=== PATIENT | female | born 1980 | race Caucasian/White ===

== ENCOUNTER 2021-10-19 11:52 | Inpatient (IN) | payer OTHER, SELFPAY ==
[2021-10-19] VITALS (10 sets, daily range): BP systolic 105–113; BP diastolic 54–81; PULSE 74–105; TEMP 36.6–37.3; BMI 42.3
--- NOTE | ~2021-10-19 | US_ITS ---
EXAMINATION: US OB limited w BPP DATE: 10/19/2021 13:47 INDICATION: Spotting. Third trimester. TECHNIQUE: Real-time pelvic ultrasound was performed. COMPARISON: None. FINDINGS: There is a single living fetus in vertex presentation. The placenta is fundal. heart rate is 1 50 beats per minute (bpm). The amniotic fluid index is 9.3 cm, which is normal. Biophysical profile performed by the technologist: breathing (30 sec sustained breathing in 30 minutes): 2 out of 2 movement (3 gross body movements in 30 minutes): 2 out of 2 tone (one episode of ljjkbiz-sghnvsxeb-adodrqi limb movement): 2 out of 2 Amniotic fluid pocket (2 cm): 2 out of 2 Total score: 8 out of 8 IMPRESSION: 1. Single living fetus in vertex presentation. 2. Biophysical profile 8 out of 8. Reviewed, dictated and finalized at location A. [employer]
--- NOTE | 2021-10-19 15:28 | LDADM ---
This patient, Aaliyah Garsia, was admitted to Labor/Delivery/Recovery 108 on 10/19/21 at 14:10. Plans for labor, pain management and were discussed with patient. Patient/family oriented to hospital policies and general routines including ID bracelet, bed and alarms, visiting hours, pain management, procedures, bathroom and other care routines, personal items, smoking policy, room service/diet and guest tray routines, infant security routines, and visiting hours. Patient/Family are encouraged to report perceived risks to care and to ask questions if they do not understand what they are told or what they should do. See OBIX for further documentation.
[2021-10-19] MEDS: DINOPROSTONE 10 MG VAG INSERT VAGINAL (16:44)
[2021-10-19 16:54] LABS: Basophils Percent Auto 0.2 % (0.2-1.2); Eosinophils Absolute Auto 0.1 K/mm3 (0-0.3); Eosinophils Percent Auto 0.5 % (0-4.4); Hematocrit 33.1 % (37.0-47.0); Hemoglobin 10.9 g/dL (12.0-15.0); Immature Granulocyte Absolute 0.03 K/mm3 (0.00-0.031); Immature Granulocyte Percent A 0.3 % (0-0.5); Lymphocytes Absolute Auto 1.75 K/mm3 (0.9-3.2); Lymphocytes Percent Auto 17.7 % (18.3-44.2); Mean Corpuscular HGB Conc 32.9 g/dl (32-36); Mean Corpuscular Hemoglobin 27.9 pg (26-34); Mean Corpuscular Volume 84.9 fl (80-100); Mean Platelet Volume 8.4 fl (7.4-10.4); Monocytes Absolute Auto 0.4 K/mm3 (0.1-0.6); Monocytes Percent Auto 3.9 % (2.6-8.5); Neutrophils Absolute Auto 7.6 K/mm3 (1.3-6.7); Neutrophils Percent Auto 77.4 % (45.5-73.1); Platelet Count Result 380 k/mm3 (150-375); Red Cell Distribution Width 13.2 % (11.5-14.5); White Blood Count 9.9 K/mm3 (4.5-10.0)
[2021-10-20] VITALS (131 sets, daily range): BP systolic 72–171; BP diastolic 29–140; PULSE 58–132; TEMP 36.4–37; O2SAT 96–100
[2021-10-20] MEDS: LACTATED RINGERS 1,000 ML 125 ML IV CONT ×2 (05:39→13:16)
[2021-10-20] MEDS: OXYTOCIN 30 UNITS/NS 500 ML 30 UNITS/500 ML BAG IV CONT (05:39)
--- NOTE | 2021-10-20 06:47 | WPDOBADMIT ---
Obstetrics - Admit Note Admission Note: record reviewed. No pertinent additions to the history and/or any subsequent changes in the physical findings that are not consistent with the expected course of the were found. MIL at 39.4 weeks gestation, Induction for third trimester spotting SVE /-3, AROM minimal amount of fluid, odorless, blood colored mucus, will continue to monitor Additions to the history and/or subsequent changes in the physical findings follow. None.
[2021-10-20] MEDS: fentaNYL CITRATE INJ (*CRX) 100 MCG/2 ML VIAL IV PUSH (12:12)
--- NOTE | 2021-10-20 13:25 | WPDANESEPP ---
Anes - Eval Pre Procedure Procedure: Labor Epidural Operation Date: 10/17/21 13:30 Proposed Procedures p Primary Section - Sebastien Delaney MD Date/Time: 10/20/21 13:25 Surgeon: Elaina Preop Diagnosis: Labor Pain Pre Op Diagnosis: Contractions Patient Data Age: 41 Gender: F Height: 1.6 m Weight: 108.5 kg Last Vital Signs Temp 37.0 C 10/20/21 06:40 Pulse 80 10/20/21 13:20 BP 121/80 10/20/21 13:20 Pulse Ox 99 10/20/21 13:16 Allergies Allergy/AdvReac Type Severity Reaction Status Date / Time No Known Allergies Allergy Mild Verified 12/18/12 13:36 Home Medications Medication Instructions Recorded Confirmed Type prenat.vits,caesar,hnh-wiig-vstnw 1 tablet PO DAILY 10/01/21 10/19/21 History [ #2] calcium carbonate [Tums] 300 mg PO QID PRN 10/19/21 10/19/21 History Laboratory Tests 10/19/21 10/19/21 10/19/21 16:35 16:35 16:35 WBC 9.9 K/mm3 K/mm3 (4.5-10.0) RBC 3.90 M/mm3 L M/mm3 (4.2-5.4) Hgb 10.9 g/dL L g/dL (12.0-15.0) Hct 33.1 % L % (37.0-47.0) MCV 84.9 fl fl (80-100) MCH 27.9 pg pg (26-34) MCHC 32.9 g/dl g/dl (32-36) RDW 13.2 % % (11.5-14.5) Plt Count 380 k/mm3 H k/mm3 (150-375) MPV 8.4 fl fl (7.4-10.4) Immature Gran % (Auto) 0.3 % % (0-0.5) Neut % (Auto) 77.4 % H % (45.5-73.1) Lymph % (Auto) 17.7 % L % (18.3-44.2) [place] % (Auto) 3.9 % % (2.6-8.5) Eos % (Auto) 0.5 % % (0-4.4) Baso % (Auto) 0.2 % % (0.2-1.2) Lymph # (Auto) 1.75 K/mm3 K/mm3 (0.9-3.2) [place] # (Auto) 0.4 K/mm3 K/mm3 (0.1-0.6) Eos # (Auto) 0.1 K/mm3 K/mm3 (0-0.3) Baso # (Auto) 0.0 K/mm3 K/mm3 (0.0-0.1) Abs Immat Gran (auto) 0.03 K/mm3 K/mm3 (0.00-0.031) Absolute Neuts (auto) 7.6 K/mm3 H K/mm3 (1.3-6.7) Absolute Nucleated RBC 0.0 K/mm3 K/mm3 (0.0-0.012) Nucleated RBC % 0.0 % % (0.0-0.2) RPR Pending Blood Type A Positive Antibody Screen Negative : gestational age (ROSENDO 10/23/21) Patient hx anesthesia problems: none Family hx anesthesia problems: none Results Review: All pre-operative results and documents have been reviewed as part of the pre-operative evaluation. [facility] Family History Family History Father Heart murmur of High cholesterol H/O right and left heart catheterization Mother Arthritis H/O partial thyroidectomy Hypertension Grandparent Breast cancer in female Acute myocardial infarction Congestive heart failure A-fib Heart disease Melanoma Lung cancer Social History Social History Smoking status: Never smoker Second hand tobacco smoke exposure: No Substance use: never Spiritual care concerns: No Exam Day of Procedure 10/20/21 13:25 Patient weight: obese Heart: regular rate and rhythm Lungs: normal air movement Airway: Mallampati scale class II Neurological: alert and oriented
--- NOTE | 2021-10-20 17:52 | P.PCNOB_ITS ---
OB - Delivery Note Procedure Delivery date: 10/20/21 Procedure: Procedures vaginal delivery Operation Date: 10/17/21 13:30 <No data on this case meets the specified criteria> Intrapartal events: None and Deceleration (variables) Induction method: AROM, per pitocin protocol and per cervidil protocol Delivery monitor: none, external FHT, external uterine, internal FHT and internal uterine Episiotomy description: None Laceration Description: None Specimen: Yes Quantitative Blood Loss (ml): 95 Anesthesia type: Epidural Disposition: floor [place] Baby Date of : 10/20/21 Time of : 17:39 Weeks of gestation at delivery: 39 gender: Female Weight (pounds): 7 Weight (ounces): 11 presentation: vertex position: Left Occiput Anterior Placenta delivery description: Spontaneous cord vessel description: 3 Vessels, Nuchal Cord (x2), Loose, Reduced, Clamped/Cut, Around Body x1 and Delayed Cord Clamping score one minute: 9 score five minutes: 9 Narrative: mother and baby skin to skin in stable condition
[2021-10-20] MEDS: OXYTOCIN 30 UNITS/NS 500 ML 30 UNITS/500 ML BAG 125 UNITS IV CONT (18:16)
[2021-10-21 05:35] LABS: Hematocrit 31.4 % (37.0-47.0)
[2021-10-21] MEDS: ACETAMINOPHEN 325 MG TABLET 650 MG PO (06:33)
[2021-10-21 07:35] VITALS: BP 99/65; PULSE 59; RESP 14; TEMP 36.5; O2SAT 99
--- NOTE | 2021-10-21 12:38 | WPDANLDPN2 ---
Anes-Prog Note L&D Date/Time: 10/21/21 12:38 Comfortable throughout: labor and delivery Neuraxial method: epidural Epidural/Spinal procedure site: clean & non-tender Neuro status: Neuro function grossly intact. Cardiovascular status: normal Respiratory status: normal Airway patency: baseline Mental status: baseline Post-Op hydration status: normal Vital Signs: Last Vital Signs Temp 36.5 C 10/21/21 07:35 Pulse 59 L 10/21/21 07:35 Resp 14 10/21/21 07:35 BP 99/65 L 10/21/21 07:35 Pulse Ox 99 10/21/21 07:35 Pain score (VAS): 12/10 I/O: Intake & Output 10/20/21 10/21/21 10/21/21 23:59 07:59 15:59 Intake Total 500 Output Total 260 Balance 240 Post-procedural complaints: none Patient feedback: Patient satisfied with anesthetic care.
[2021-10-21] MEDS: MULTIVIT/MIN/PREN/FOL AC/IRON TABLET 1 TAB PO (12:48)
[2021-10-21 13:04] VITALS: BP 96/62; PULSE 65; RESP 16; TEMP 36.5
--- NOTE | 2021-10-21 13:43 | P.PNOB_ITS ---
OB - PN: Subj Subjective Date/time seen: 10/21/21 13:43 Patient comments: no complaints, pain well controlled, incisional pain, tolerating diet and flatus present OB - PN: Obj Data Labs CBC & Chem 7: 10/21/21 04:55 Labs: Laboratory Results - last 24 hr 10/21/21 04:55 Hgb 10.0 L Hct 31.4 L OB - PN A/P Plan day: 1 Plan: routine care Comments: No problems, routine care, to d/c Time Spent With Patient Time: Total time spent is greater than 50% in coordination of care (as documented) at patient's floor/unit and/or counseling patient: Exam Const: General: comfortable, no acute distress and alert Resp: Effort & Inspection: normal respiratory effort Auscultation: no aircraft tool maker ckles, no rales and no rhonchi Cardio: Rate: regular rate Heart sounds: no click, no murmurs and no rubs GI: Inspection: non-distended GI Palp: No Tenderness to palpation present (GI) Auscultation: normal bowel sounds Other: Incision - CDI Extrem: General: normal to inspection, no pedal edema and no calf tenderness
--- NOTE | 2021-10-21 13:43 | PM.OBDSVD ---
DS: Admitting Diagnosis Discharge Date 10/21/21 Admitting Diagnosis term , vaginal bleeding DS: Discharge Diagnosis Discharge Diagnosis (1) Term delivered: Code(s): O80 - Encounter for full-term uncomplicated delivery Status: Acute OB - DS: Summary OB Procedures : Ultrasound OB Procedures Intrapartum: Spontaneous Vag Delivery OB Procedures: : None Peripartum Data Procedures: Procedures Operation Date: 10/17/21 13:30 <No data on this case meets the specified criteria> Time Spent with Patient Time attestation: Total time spent providing and/or coordinating discharge services: DS: Data Data Completed and Pending Pending studies at discharge: Pending at discharge 10/20/21 20:46 Surgical [PTH] Routine Labs on day of discharge: Labs from last 24 hours 10/21/21 04:55 Hgb 10.0 L Hct 31.4 L Discharge Plan Discharge Discharging Clinician: Sebastien Delaney Patient Disposition: Home, Self-Care Activity: pelvic rest Diet: regular Patient Instructions: Antibiotic Form Stand Alone Forms: General Discharge Information Follow-up/Referrals: Sebastien Delaney MD [Physician] - Discharge Medications: Continued #2 Tablet 1 tablet PO DAILY RF: 0 calcium carbonate [Tums] 300 mg (750 mg) Tablet,Chewable 300 mg PO QID PRN (Reason: Heartburn) RF: 0 Date of admission: 10/19/21 14:10 Primary Care Provider: Abraham,Elizabeth Layton Admitting Provider: Sebastien Delaney Attending physician on admission: Sebastien Delaney Condition: Stable
[2021-10-21] MEDS: LANOLIN (LANSINOH) 7.5 GM CREAM 1 APPLIC TOPICAL (14:29)
[2021-10-21 17:00] VITALS: BP 92/61; PULSE 66; RESP 16; TEMP 36.6; O2SAT 98
[2021-10-22 06:11] LABS: Rapid Plasma Reagin Non-Reactive (NonReactive)
[2021-10-22 13:56] VITALS: BP 122/66; PULSE 66; RESP 20; TEMP 36.9; O2SAT 100
== END 2021-10-21 19:36 | disposition home or self-care (01) | DRG 807 ==
LOC: ANHOBPP 13:02 → ANHLDR 15:03 → ANHOB2 10-20 20:45
PROVIDERS: Admitting Provider Obstetrics & Gynecology; PCP Family Medicine; Referring Provider Advanced Practice Midwife; Visit Provider Obstetrics & Gynecology
DX: O69.81X0 Labor and delivery complicated by cord around neck, without compression, not applicable or unspecified (principal); Z37.0 Single live birth; O76 Abnormality in fetal heart rate and rhythm complicating labor and delivery; Z3A.39 39 weeks gestation of pregnancy; O26.853 Spotting complicating pregnancy, third trimester
CPT/HCPCS: 36415; 76815; 76819; 85014; 85018; 85025; 86592; 86850; 86900; 86901; 88307; A9270; J2590; J2795; J3010; J7120

== ENCOUNTER 2022-12-24 12:52 | Inpatient (IN) | payer OTHER, SELFPAY ==
[2022-12-24] VITALS (8 sets, daily range): BP systolic 100–111; BP diastolic 54–71; PULSE 67–82; RESP 16; TEMP 36.4–37.1; BMI 44.5
--- NOTE | ~2022-12-24 | US_ITS ---
EXAMINATION: US OB limited DATE: 12/24/2022 15:01 INDICATION: Vaginal spotting. Assess amniotic fluid index, presentation and placenta during thi rd trimester . TECHNIQUE: Real-time ultrasound of the pelvis was performed utilizing transabdominal probe. The inter preting radiologist was not present for the study. COMPARISON: None. FINDINGS: There is a single living fetus in breech presentation. The placenta is fundal. No evident subchorion ic hematoma.. heart rate is 142 beats per minute (bpm). The amniotic fluid index is 8.1 cm, whi ch is normal. The cervix is not clearly visualized. IMPRESSION: 1. Single living fetus in breech presentation with heart rate of 142 bpm. 2. Normal amniotic fluid index of 8.1 cm. Reviewed, dictated and finalized at location L. ANALYTICS CHIEF SCIENTIST IMPRESSION: 1. Single living fetus in breech presentation with heart rate of 142 bpm . 2. Normal amniotic fluid index of 8.1 cm.
--- NOTE | 2022-12-24 15:52 | PC.NURSE ---
Wesly Dominique CNM informed of U/S report. CNM spoke with pt regarding breech position and less fluid than last week makes it more difficult to turn baby, but still a possibility to try. CNM will be here early in the morning to check presentation again by bedside U/S.
--- NOTE | 2022-12-24 16:00 | LDADM ---
This patient, Aaliyah Garsia, was admitted to OB 115 on 12/24/22 at 12:52. Plans for and pain management were discussed with patient. Patient/family oriented to hospital policies and general routines including ID bracelet, bed and alarms, visiting hours, pain management, procedures, bathroom and other care routines, personal items, smoking policy, room service/diet and guest tray routines, security routines, and visiting hours. Patient/Family are encouraged to report perceived risks to care and to ask questions if they do not understand what they are told or what they should do. See OBIX for further documentation.
[2022-12-24 16:08] LABS: Basophils Percent Auto 0.2 % (0.2-1.2); Eosinophils Absolute Auto 0.1 K/mm3 (0-0.3); Eosinophils Percent Auto 0.5 % (0-4.4); Hematocrit 33.4 % (37.0-47.0); Hemoglobin 10.8 g/dL (12.0-15.0); Immature Granulocyte Absolute 0.03 K/mm3 (0.00-0.031); Immature Granulocyte Percent A 0.3 % (0-0.5); Lymphocytes Absolute Auto 2.15 K/mm3 (0.9-3.2); Lymphocytes Percent Auto 21.6 % (18.3-44.2); Mean Corpuscular HGB Conc 32.3 g/dl (32-36); Mean Corpuscular Hemoglobin 26.7 pg (26-34); Mean Corpuscular Volume 82.7 fl (80-100); Mean Platelet Volume 8.4 fl (7.4-10.4); Monocytes Absolute Auto 0.5 K/mm3 (0.1-0.6); Monocytes Percent Auto 4.7 % (2.6-8.5); Neutrophils Absolute Auto 7.2 K/mm3 (1.3-6.7); Neutrophils Percent Auto 72.7 % (45.5-73.1); Platelet Count Result 329 k/mm3 (150-375); Red Blood Count 4.04 M/mm3 (4.2-5.4); Red Cell Distribution Width 12.8 % (11.5-14.5)
--- NOTE | 2022-12-24 18:30 | PC.NURSE ---
Pt has no complaints at this time. Pt used restroom while i was in the room. No bleeding noted in toilet. Very very faint pink noted on toilet paper. Pt aware to not eat after midnight. No needs at this time.
--- NOTE | 2022-12-24 22:30 | PC.NURSE ---
Pt used restroom, no blood noted in toilet. Very light pink noted on toilet paper.
[2022-12-25] VITALS (136 sets, daily range): BP systolic 79–135; BP diastolic 29–111; PULSE 53–149; RESP 16–18; TEMP 36.1–36.9; O2SAT 95–100
--- NOTE | 2022-12-25 01:20 | PC.NURSE ---
Pt used restroom, no blood noted in toilet. Very light pink noted on toilet paper.
--- NOTE | 2022-12-25 03:59 | PC.NURSE ---
Pt used restroom, denies leaking, very light pink on toilet paper.
--- NOTE | 2022-12-25 05:53 | PC.NURSE ---
Lisette Dominique at bedside. US used and fetus is vertex. Orders to move patient to labor and start pitocin.
--- NOTE | 2022-12-25 05:58 | PM.IMHP ---
H&P: HPI History of Present Illness Date/Time: 12/25/22 05:58 Pt at 39. 1 weeks gestation Chief Complaint: pt admitted to LD after noticing some decreased movement and an episode of pink to brown spotting, denies cramping. has noticed increase in discharge, but not necessarily a gush of fluid. On arrival positive movement and US revealed breech presentation. PRIYA 8 at that time. Discussed with Dr. Delaney and external version planned for this am. This morning bedside US revealed vertex presentation. pt has occasional contraction and FHR category 1 has been complicated by obesity, AMA, and circumvallate placenta. Review of Systems Review of Systems: All systems reviewed & are unremarkable except as noted in HPI and below PMFSH Family History Family History Father Heart murmur of High cholesterol H/O right and left heart catheterization Mother Arthritis H/O partial thyroidectomy Hypertension Grandparent Breast cancer in female Acute myocardial infarction Congestive heart failure A-fib Heart disease Melanoma Lung cancer Social History Social History Smoking status: Never smoker Second hand tobacco smoke exposure: No Substance use: never Lack of Transportation: No Lack of Food: Never True Current Housing: I Have Housing Concerned About Future Housing: No Difficulty Paying Gas/Electric Bills: No Difficulty Paying for Meds: No Currently Unemployed: No Education: Trade/Vocational Certificate Difficulty w/ Childcare or Family Care: No Spiritual care concerns: No Meds Home Medications and Allergies Home Medications Medication Instructions Recorded Confirmed Type prenat.vits,caesar,tcd-zget-sjxhd 1 tablet PO DAILY 10/01/21 12/24/22 History calcium carbonate 300 mg (750 mg) 300 mg PO QID PRN Heartburn 10/19/21 12/24/22 History chewable tablet (Tums) Allergies Allergy/AdvReac Type Severity Reaction Status Date / Time No Known Allergies Allergy Mild Verified 12/18/12 13:36 Vital Signs Vital Signs - 24 hr 12/24/22 16:00 12/24/22 17:02 12/24/22 15:30 Temperature 36.7 C Pulse Rate 67 Respiratory Rate Blood Pressure 111/66 Oxygen Delivery Room Air 12/24/22 18:01 12/24/22 17:00 12/24/22 22:34 Temperature 37.1 C Pulse Rate 82 70 Respiratory Rate Blood Pressure 106/71 100/54 L Oxygen Delivery 12/25/22 01:23 12/25/22 03:31 12/25/22 05:03 Temperature Pulse Rate 69 59 L 64 Respiratory Rate Blood Pressure 106/59 L 103/55 L 99/57 L Oxygen Delivery 12/24/22 18:30 12/24/22 20:30 12/24/22 22:30 Temperature 36.7 C 36.4 C 36.7 C Pulse Rate Respiratory Rate 16 Blood Pressure Oxygen Delivery 12/25/22 00:30 12/25/22 01:30 12/25/22 03:30 Temperature 36.2 C L 36.4 C 36.2 C L Pulse Rate Respiratory Rate 16 Blood Pressure Oxygen Delivery 12/25/22 05:00 Temperature 36.1 C L Pulse Rate Respiratory Rate Blood Pressure Oxygen Delivery Exam Const: General: cooperative, healthy appearing and comfortable Resp: Effort & Inspection: normal respiratory effort GI: Other: gravid, soft Skin: General skin exam: normal color H&P: Results Labs Labs: Short CBC 12/24/22 Range/Units 15:42 WBC 10.0 (4.5-10.0) K/mm3 Hgb 10.8 L (12.0-15.0) g/dL Hct 33.4 L (37.0-47.0) % Plt Count 329 (150-375) k/mm3 Assessment and Plan Assessment and plan (1) Unstable lie of fetus: Code(s): O32.0XX0 - Maternal care for unstable lie, not applicable or unspecified Status: Acute (2) Obesity: Code(s): E66.9 - Obesity, unspecified Status: Acute (3) AMA (advanced maternal age) multigravida 35+: Code(s): O09.529 - Supervision of elderly multigravida, unspecified trimester Status: Acute Plan at 39.1
[2022-12-25] MEDS: OXYTOCIN 30 UNITS/NS 500 ML 30 UNITS/500 ML BAG IV CONT (06:44)
[2022-12-25] MEDS: LACTATED RINGERS 1,000 ML 125 ML IV CONT ×3 (06:45→14:52)
--- NOTE | 2022-12-25 08:58 | PM.OBPNLAB ---
Pain Control Date/time seen: 12/25/22 08:58 SVE 3-4/60/-2, Vertex by bedside US, SVE moderate amount of clear, odorless fluid
--- NOTE | 2022-12-25 10:24 | WPDANESEPP ---
Anes - Eval Pre Procedure Procedure: labor pain management Date/Time: 12/25/22 10:24 Surgeon: Elaina Preop Diagnosis: pain during labor Pre Op Diagnosis: Vaginal Spotting Patient Data Age: 42 Gender: F Height: 1.57 m Weight: 110.5 kg Last Vital Signs Temp 98.3 F 12/25/22 09:00 Pulse 76 12/25/22 10:23 Resp 16 12/25/22 03:30 BP 98/82 L 12/25/22 10:23 Pulse Ox 100 12/25/22 10:23 O2 Del Method Room Air 12/25/22 06:49 Allergies Allergy/AdvReac Type Severity Reaction Status Date / Time No Known Allergies Allergy Mild Verified 12/18/12 13:36 Home Medications Medication Instructions Recorded Confirmed Type prenat.vits,caesar,rte-lrcr-vwojl 1 tablet PO DAILY 10/01/21 12/24/22 History calcium carbonate 300 mg (750 mg) 300 mg PO QID PRN Heartburn 10/19/21 12/24/22 History chewable tablet (Tums) Laboratory Tests 12/24/22 12/24/22 12/24/22 15:42 15:42 15:42 WBC 10.0 K/mm3 K/mm3 (4.5-10.0) RBC 4.04 M/mm3 L M/mm3 (4.2-5.4) Hgb 10.8 g/dL L g/dL (12.0-15.0) Hct 33.4 % L % (37.0-47.0) MCV 82.7 fl fl (80-100) MCH 26.7 pg pg (26-34) MCHC 32.3 g/dl g/dl (32-36) RDW 12.8 % % (11.5-14.5) Plt Count 329 k/mm3 k/mm3 (150-375) MPV 8.4 fl fl (7.4-10.4) Immature Gran % (Auto) 0.3 % % (0-0.5) Neut % (Auto) 72.7 % % (45.5-73.1) Lymph % (Auto) 21.6 % % (18.3-44.2) [place] % (Auto) 4.7 % % (2.6-8.5) Eos % (Auto) 0.5 % % (0-4.4) Baso % (Auto) 0.2 % % (0.2-1.2) Lymph # (Auto) 2.15 K/mm3 K/mm3 (0.9-3.2) [place] # (Auto) 0.5 K/mm3 K/mm3 (0.1-0.6) Eos # (Auto) 0.1 K/mm3 K/mm3 (0-0.3) Baso # (Auto) 0.0 K/mm3 K/mm3 (0.0-0.1) Abs Immat Gran (auto) 0.03 K/mm3 K/mm3 (0.00-0.031) Absolute Neuts (auto) 7.2 K/mm3 H K/mm3 (1.3-6.7) Absolute Nucleated RBC 0.0 K/mm3 K/mm3 (0.0-0.012) Nucleated RBC % 0.0 % % (0.0-0.2) RPR Pending Blood Type A Positive Antibody Screen Negative Patient hx anesthesia problems: none Family hx anesthesia problems: none Results Review: All pre-operative results and documents have been reviewed as part of the pre-operative evaluation. [facility] Family History Family History Father Heart murmur of High cholesterol H/O right and left heart catheterization Mother Arthritis H/O partial thyroidectomy Hypertension Grandparent Breast cancer in female Acute myocardial infarction Congestive heart failure A-fib Heart disease Melanoma Lung cancer Social History Social History Smoking status: Never smoker Second hand tobacco smoke exposure: No Substance use: never Lack of Transportation: No Lack of Food: Never True Current Housing: I Have Housing Concerned About Future Housing: No Difficulty Paying Gas/Electric Bills: No Difficulty Paying for Meds: No Currently Unemployed: No Education: Trade/Vocational Certificate Difficulty w/ Childcare or Family Care: No Spiritual care concerns: No Exam Day of Procedure 12/25/22 10:24
[2022-12-25 13:54] LABS: Rapid Plasma Reagin Non-Reactive (NonReactive)
--- NOTE | 2022-12-25 16:19 | PM.OBPRVD ---
OB - Delivery Note Procedure Delivery date: 12/25/22 Procedure: Events: Other (AMA) Induction method: AROM and Per Pitocin Protocol Delivery monitor: External FHT and Internal Uterine Route of delivery: Laceration Description: None Specimen: No Anesthesia type: Epidural Disposition: Floor Narrative: mom and baby stable and doing skin to skin [place] Baby Date of : 12/25/22 Time of : 16:10 Weeks of gestation at delivery: 39 Infant gender: Female presentation: vertex position: Right Occiput Anterior Placenta delivery description: Spontaneous Cord Vessel Description: 3 Vessels, Clamped/Cut and Delayed Cord Clamping score one minute: 8 score five minutes: 9
[2022-12-25] MEDS: OXYTOCIN 30 UNITS/NS 500 ML 30 UNITS/500 ML BAG 125 UNITS IV CONT (16:43)
[2022-12-26 03:53] VITALS: BP 101/60; PULSE 62; RESP 18; TEMP 36.6; O2SAT 98
[2022-12-26 03:55] LABS: Hemoglobin 10.1 g/dL (12.0-15.0)
--- NOTE | 2022-12-26 07:50 | WPDANLDPN2 ---
Anes-Prog Note L&D Date/Time: 12/26/22 07:50 Comfortable throughout: labor and delivery Neuraxial method: epidural Epidural/Spinal procedure site: tender Neuro status: Neuro function grossly intact. Cardiovascular status: normal Respiratory status: normal Airway patency: baseline Mental status: baseline Post-Op hydration status: normal Vital Signs: Last Vital Signs Temp 36.6 C 12/26/22 03:53 Pulse 62 12/26/22 03:53 Resp 18 12/26/22 03:53 BP 101/60 12/26/22 03:53 Pulse Ox 98 12/26/22 03:53 O2 Del Method Room Air 12/25/22 20:02 Pain score (VAS): 3/10 I/O: Intake & Output 12/25/22 12/25/22 12/26/22 15:59 23:59 07:59 Intake Total 2000 500 Output Total 150 Balance 1999 350 Post-procedural complaints: none Patient feedback: Patient satisfied with anesthetic care.
--- NOTE | 2022-12-26 07:53 | PM.OBPNVD ---
OB - PN: Subj Subjective Date/time seen: 12/26/22 07:53 Patient comments: no complaints baby status: doing well OB - PN: Obj Data Labs 12/26/22 03:38 Labs: Laboratory Results - last 24 hr 12/24/22 12/26/22 15:42 03:38 Hgb 10.1 L Hct 31.0 L RPR Non-reactive OB - PN A/P Plan day: 1 Plan: routine care Time Spent With Patient Time: Total time spent is greater than 50% in coordination of care (as documented) at patient's floor/unit and/or counseling patient: Time with patient: less than 15 minutes Review of Systems Review of Systems: All systems reviewed & are unremarkable except as noted in HPI and below Exam Narrative: Fundus firm and vaginal flow controlled. No lower ext redness, warmth, or edema. Negative homans. Const: General: comfortable Chest: Breast/axilla inspection: normal inspection of the breasts Resp: Effort & Inspection: normal respiratory effort Cardio: Rate: regular rate GI: GI Palp: Yes Soft to palpation Psych: Appearance: grossly normal Affect: normal affect Attitude: cooperative Thought content: Yes Normal thought content present Judgement: Good judgement present (Psych)
[2022-12-26 08:00] VITALS: BP 112/61; PULSE 70; RESP 16; TEMP 37.1; O2SAT 99
--- NOTE | 2022-12-26 08:00 | PC.NURSE ---
Pt introductions made and plan of care discussed per post , pain management, breast feeding, daily care activities and pending discharge to home. PT and spouse both received instructions and no barriers to learning at this time. PT received such instructions this shift per one to one discussion, mom baby care guide and demonstrations. PT verbalized understanding of such care.
[2022-12-26] MEDS: MULTIVIT/MIN/PREN/FOL AC/IRON TABLET 1 TAB PO (08:23)
[2022-12-26] MEDS: LANOLIN (LANSINOH) 7.5 GM CREAM 1 APPLIC TOPICAL (08:24)
[2022-12-26 11:56] VITALS: BP 106/58; PULSE 72; RESP 16; TEMP 37.3; O2SAT 99
--- NOTE | 2022-12-26 19:50 | PC.NURSE ---
Patient viewed the discharge video Mother & Baby Care, The First Two Weeks . Patient was given the opportunity and encouraged to ask questions. Patient verbalized understanding of information shared and has been given the mother/baby guide for home reference.
[2022-12-27 15:57] VITALS: BP 139/79; PULSE 64; RESP 20; TEMP 36.6; O2SAT 99
--- NOTE | 2023-01-20 09:32 | PM.OBDSVD ---
DS: Admitting Diagnosis Discharge Date 12/26/22 Admitting Diagnosis term OB - DS: Summary OB Procedures : None OB Procedures Intrapartum: Spontaneous Vag Delivery OB Procedures: : None Time Spent with Patient Time attestation: Total time spent providing and/or coordinating discharge services: Discharge Plan Discharge Consulting providers: Lucinda Omer ; Glen Mccann ; Pastora Chin ; Layla Oseguera ; Lisette Dominique Discharging Clinician: Sebastien Delaney Patient Disposition: Home, Self-Care Activity: as tolerated Diet: regular Discharge Instructions: Education: Mom and Baby Guide Given to: Mother Follow-Up: Call your delivering provider's office for an appointment to be seen in: Call office for appointment Mom and baby should come to the [facility] for the follow-up appointment. Appointment Date/Time: December 27, 2022 at 3:30 pm What to expect at your follow-up visit: Blood Pressure Check Physical Assessment Call [phone] if you are unable to keep your appointment time. BREAST CARE: * Wear a snug supportive bra. * For engorgement discomfort: Breast Feeding: * Apply warm moist washcloths * Express milk as needed to relieve engorgement * Wear loose clothing Bottle Feeding: * May apply ice packs * For sore nipples: * Identify correct latch-on * Apply warm moist washcloths before and after nursing * Air dry nipples after nursing * May apply Lansinoh cream to nipples EPISIOTOMY/PERINEAL CARE: * Until bleeding stops, use your andria bottle after urinating * Change your pad frequently throughout the day * You may take sitz baths several times a day (fill your bathtub with warm water and soak for 20 minutes.) Do NOT bathe in the water * No tub baths until seen by your physician - You may shower ACTIVITY: * Rest as much as possible. * Do not exercise or lift anything heavier than your baby (such as laundry or other children.) * Avoid stairs or driving as much as possible. * Do not put anything into the vagina. No douching, tampons, or sexual activity until seen by physician. NOTIFY PHYSICIAN IF YOU HAVE ANY QUESTIONS OR IF ANY OF THE FOLLOWING SYMPTOMS OCCUR: * If your episiotomy or incision becomes red, swollen, or more painful than what you have experienced in the hospital. * If your vaginal bleeding becomes foul smelling. * If your vaginal bleeding becomes more heavy than a period or if your bleeding changes from pink to bright red. However, you may pass an occasional walnut-sized clot once or twice for the first week . * If you experience a sharp, shooting pain in you calves. * If you discover a hard, reddened area on your breast or if you experience flu-like symptoms. DIET: * Eat regular, well-balanced meals. * Drink plenty of fluids daily. If , drink to thirst. Patient Instructions: Antibiotic Form Stand Alone Forms: General Discharge Information Follow-up/Referrals: Lisette Dominique CNM [Certified Nurse Electrocardiogram Technician] - Discharge Medications: Continued prenat.vits,caesar,[id number] Tablet 1 tablet PO DAILY calcium carbonate [Tums] 300 mg (750 mg) Tablet,Chewable 300 mg PO QID PRN (Reason: Heartburn) Date of admission: 12/24/22 12:52 Primary Care Provider: Abraham,Elizabeth Layton Admitting Provider: Sebastien Delaney Attending physician on admission: Sebastien Delaney Condition: Stable
== END 2022-12-26 19:55 | disposition home or self-care (01) | DRG 807 ==
LOC: ANHOBPP 14:16 → ANHLDR 12-25 06:01 → ANHOB2 12-25 19:48
PROVIDERS: Admitting Provider Obstetrics & Gynecology; PCP Family Medicine; Referring Provider Advanced Practice Midwife; Visit Provider Obstetrics & Gynecology
DX: O32.1XX0 Maternal care for breech presentation, not applicable or unspecified (principal); Z37.0 Single live birth; O99.214 Obesity complicating childbirth; O43.113 Circumvallate placenta, third trimester; O32.0XX0 Maternal care for unstable lie, not applicable or unspecified; O76 Abnormality in fetal heart rate and rhythm complicating labor and delivery; Z3A.39 39 weeks gestation of pregnancy
CPT/HCPCS: 36415; 76815; 85014; 85018; 85025; 86592; 86850; 86900; 86901; A9270; J2590; J2795; J7120